=== PATIENT | female | born 1970 | race Two or more races ===

== ENCOUNTER 2020-10-10 10:21 | Outpatient (CLI) | payer OTHER | END 2020-10-10 10:39 | disposition home or self-care (01) | LOC: SONOGRAMA 10:21 → MAMO-SONO 10:30 → SONOGRAMA 10:39 | PROVIDERS: ATTEND Physical Medicine & Rehabilitation Hospice and Palliative Medicine | DX: M76.62 Achilles tendinitis, left leg (principal) ==

== ENCOUNTER 2020-10-25 12:32 | Outpatient (CLI) | payer OTHER | END 2020-10-25 12:41 | disposition home or self-care (01) | LOC: RAD 12:32 | PROVIDERS: ATTEND Specialist | DX: M79.672 Pain in left foot (principal); M25.372 Other instability, left ankle ==

== ENCOUNTER 2025-02-01 09:57 | Outpatient (CLI) | payer OTHER | END 2025-02-01 10:06 | disposition home or self-care (01) | LOC: SONOGRAMA 09:57 | PROVIDERS: ATTEND Physical Medicine & Rehabilitation Hospice and Palliative Medicine | DX: M25.512 Pain in left shoulder (principal); M79.602 Pain in left arm; M75.32 Calcific tendinitis of left shoulder ==